=== PATIENT | female | born 1970 | race Caucasian/White ===

== ENCOUNTER → 2016-07-14 | Outpatient (CLI) | payer OTHER ==
[~2016-07-14] MED LIST: PHENERGAN25 M1; ZOFRAN
--- NOTE | ~2016-07-14 | MY11 ---
[facility] A Service [facility] RADIOLOGY TEXT RESULTS PATIENT: PUJA BECKMAN LOCATION: [facility] : [birth year] UNIT #: [id number] AGE: [address]: Amado Willingham MD SEX: F ORDER DR: [id number] [facility] [address] [place], [place] [address] [id number] O MR#: [id number] Acc #: [id number] NAME: PUJA BECKMAN : 1970 SEX: F STUDY DATE/TIME: 07/14/2016 16:07 UNIT: [facility] ROOM: STUDY DESCRIPTION: MY Mammogram Screening Dig Gael Attending Physician: Amado Willingham M.D. Ordering Physician: Amado Willingham M.D. Primary Care Physician: Amado Willingham M.D. MEDICAL IMAGING REPORT This report is preliminary unless electronic signature is present EXAM Bilateral digital screening with CAD INDICATION Routine screening. No current complaints. No family history of breast cancer. COMPARISON 09/18/2012 FINDINGS MLO and CC digital views of each breast were obtained. The exam was reviewed with an FDA-approved CAD device. There are scattered fibroglandular densities. There are no masses or abnormal calcifications. There has been no change. IMPRESSION No change and no evidence of malignancy. Patients over the age of 40 are entered into a reminder system with target due date for the next mammogram. A result letter will also be sent to the patient. BIRADS: 1 Negative Dictated by... Cr Bradshaw M.D. THIS IS AN ELECTRONICALLY VERIFIED REPORT Cr Bradshaw M.D. at 07/21/2016 3:57 PM KAVON/jammie TD: 07/21/2016 15:18 [facility] A Service [facility] RADIOLOGY TEXT RESULTS PATIENT: PUJA BECKMAN LOCATION: [facility] : [birth year] UNIT #: [id number] AGE: [address]: Amado Willingham MD SEX: F ORDER DR: JOB #: [id number] MEDICAL IMAGING REPORT Page 1 of 1 COPY
--- NOTE | ~2016-07-14 | US98 ---
[facility] A Service of [facility] RADIOLOGY TEXT RESULTS PATIENT: PUJA BECKMAN LOCATION: [facility] : [birth year] UNIT #: [id number] AGE: [address]: Amado Willingham MD SEX: F ORDER DR: [id number] [facility] [address] [place], [place] [address] [id number] O MR#: [id number] Acc #: [id number] NAME: PUJA BECKMAN : 1970 SEX: F STUDY DATE/TIME: 07/14/2016 15:38 UNIT: [facility] ROOM: STUDY DESCRIPTION: US Pelvic Non-OB Complete Attending Physician: Amado Willingham M.D. Ordering Physician: Amado Willingham M.D. Primary Care Physician: Amado Willingham M.D. MEDICAL IMAGING REPORT This report is preliminary unless electronic signature is present EXAM Pelvic ultrasound 07/14/2016 transabdominal and transvaginal technique. INDICATIONS 45-year-old female with history of neuropathy. Heavy menstruation for several months, passing large clots. Essure placed several months ago. TECHNIQUE Sonographic imaging of the pelvis was performed utilizing transabdominal and then transvaginal technique for better evaluation of the adnexa and ovarian structures. COMPARISON FINDINGS Transabdominal imaging: Endometrial stripe measures about 6 mm transabdominally, within normal range. The right ovary is not identified transabdominally. The left ovary is only seen transabdominally and measures 1.8 x 1.7 x 2.6 cm and demonstrates good flow at the time of the study. The uterus is better characterized transvaginally. Transvaginal imaging: Uterus measures about 8.8 x 5.5 x 4.9 cm. Endometrial stripe measures in the normal range at about 8 mm. Probable complicated nabothian cysts in the cervix. Uterus otherwise unremarkable. The right ovary measures 4.6 x 3.0 cm and demonstrates good flow at the time of the study. There is a cystic mass in the left ovary measuring up to 3.0 x 2.2 cm. It demonstrates an internal septation that is thin with no internal color-flow. There is good through transmission. Imaging [facility] A Service of [facility] RADIOLOGY TEXT RESULTS PATIENT: PUJA BECKMAN LOCATION: [facility] : [birth year] UNIT #: [id number] AGE: [address]: Amado Willingham MD SEX: F ORDER DR: features suggest a physiologic complicated cyst. The right ovary demonstrates good flow. No adnexal mass or drainable fluid collection. The left ovary is not identified transvaginally. IMPRESSION 1. The uterus is unremarkable. No suspicious mass or endometrial thickening. Incidental simple and complicated nabothian cysts in the cervix. 2. Physiologic appearing cyst in the right ovary. This measures about 3.0 cm. 3. The ovaries are otherwise unremarkable. Both ovaries demonstrate good flow. Dictated by... Cedric Cervantes M.D. THIS IS AN ELECTRONICALLY VERIFIED REPORT Cedric Cervantes M.D. at 07/16/2016 8:02 AM MYCHAL/feng TD: 07/15/2016 11:19 JOB #: [id number] MEDICAL IMAGING REPORT Page 1 of 1 COPY
== END | disposition home or self-care (01) ==
LOC: CWCC 15:17
DX: Z12.31 Encounter for screening mammogram for malignant neoplasm of breast (principal); N92.1 Excessive and frequent menstruation with irregular cycle; N83.201 Unspecified ovarian cyst, right side
CPT/HCPCS: 76830; 76856; G0202